=== PATIENT | male | born 1950 | race Caucasian/White ===

== ENCOUNTER 2017-04-11 08:58 | Inpatient (IN) | payer MEDICARE, OTHER ==
[~2017-04-11] VITALS: Ht 180.3 cm; Wt 74.4 kg
[2017-04-11] MEDS ORDERED: ASPI-496 PO (09:15)
[2017-04-11] MEDS ORDERED: MORPHINE SULFATE 4 MG/ML, 1ML ONE ×4 (09:25→12:11)
[2017-04-11] MEDS ORDERED: ONDANSETRON 2MG/ML, 2ML ONE ×3 (09:25→15:13)
[2017-04-11] MEDS ORDERED: ONDANSETRON 2MG/ML, 2ML IVPush ONE (09:30)
[2017-04-11] MEDS ORDERED: SODIUM CHLORIDE FLUSH 10ML SYR IVF ONE (09:30)
[2017-04-11 09:31] LABS: BASOPHILS # (AUTO) 0.05 x10^3/uL (0-0.1); BASOPHILS % (AUTO) 0 % (0-1); EOSINOPHILS # (AUTO) 0.66 x10^3/uL (0-0.4); EOSINOPHILS % (AUTO) 6 % (1-7); LYMPHOCYTES # (AUTO) 1.43 x10^3/uL (1-3.4); LYMPHOCYTES % (AUTO) 13 % (22-44); MD NO; MEAN CORPUSCULAR HEMOGLOBIN 30.5 pg (27.5-34.5); MEAN CORPUSCULAR HGB CONC 33.7 g/dL (33.2-36.2); MEAN CORPUSCULAR VOLUME 90.4 fL (81-97); MEAN PLATELET VOLUME 7.6 fL (7.4-10.4); MONOCYTES # (AUTO) 0.61 x10^3/uL (0.2-0.8); MONOCYTES % (AUTO) 5 % (2-9); NEUTROPHILS # (AUTO) 8.57 x10^3/uL (1.8-6.8); NEUTROPHILS % (AUTO) 76 % (42-75); PLATELET COUNT 310 x10^3/uL (130-400); RED BLOOD COUNT 4.83 x10^6/uL (4.38-5.82); RED CELL DISTRIBUTION WIDTH 13.5 % (9.4-14.8)
[2017-04-11] MEDS: MORPHINE SULFATE 4 MG/ML, 1ML IVPush PRN ×4 (09:33→23:02)
[2017-04-11 09:38] LABS: INTERNATIONAL NORMALIZED RATIO 0.98 (0.93-1.1); PROTHROMBIN TIME 10.1 Seconds (9.6-11.5)
[2017-04-11 09:41] LABS: ALANINE AMINOTRANSFERASE 69 U/L (12-78); ALBUMIN 3.4 g/dL (3.4-5.0); ANION GAP 5 mmol/L (5-15); CALCIUM 8.8 mg/dL (8.5-10.1); CHLORIDE 105 mmol/L (98-107); CREATININE 1.08 mg/dL (0.7-1.3)
[2017-04-11 09:43] LABS: ALKALINE PHOSPHATASE 175 U/L (45-117); BILIRUBIN,TOTAL 0.4 mg/dL (0.2-1.0); TOTAL PROTEIN 7.7 g/dL (6.4-8.2)
[2017-04-11] MEDS ORDERED: MORPHINE SULFATE 4 MG/ML, 1ML IVPush PRN ×2 (11:00→11:30)
[2017-04-11] MEDS ORDERED: SODIUM CHLORIDE 0.9% 1,000ML IVBOLUS ONE (11:00)
[2017-04-11] MEDS ORDERED: SODIUM CHLORIDE 0.9% 1,000 ML IV ONE ×2 (11:20→12:00)
[2017-04-11] MEDS ORDERED: ONDANSETRON 2MG/ML, 2ML IVPush PRN ×2 (11:30→12:00)
[2017-04-11] MEDS ORDERED: SODIUM CHLORIDE FLUSH 10ML SYR IVF PRN (11:30)
[2017-04-11] MEDS ORDERED: ONDANSETRON ODT 4 MG PO PRN (12:00)
[2017-04-11] MEDS ORDERED: DOCUSATE 100 MG CAPSULE PO PRN (12:00)
[2017-04-11] MEDS ORDERED: ENOXAPARIN 40 MG/0.4 ML SQ SCH (12:00)
[2017-04-11] MEDS ORDERED: LABETALOL 5MG/ML, 20ML IVPush PRN (12:00)
[2017-04-11] MEDS ORDERED: ENALAPRILAT 1.25 MG/ML, 2ML IVPush PRN (12:00)
[2017-04-11 14:00] VITALS: BP 140/72
[2017-04-11] MEDS ORDERED: FENTANYL PF 250 MCG/5ML ONE (14:30)
[2017-04-11] MEDS ORDERED: FENTANYL PF 100 MCG/2ML IV PRN (14:30)
[2017-04-11] MEDS ORDERED: MIDAZOLAM 1 MG/ML, 2ML ONE (14:30)
[2017-04-11] MEDS ORDERED: OXYcodone 5 MG/5 ML ORAL.SOL UDC PO PRN (14:30)
[2017-04-11] MEDS ORDERED: PROMETHAZINE 25 MG/ML, 1ML IV PRN (14:30)
[2017-04-11] MEDS ORDERED: HYDROmorphone 1 MG/ML, 1ML IV PRN ×2 (14:30→17:30)
[2017-04-11] MEDS ORDERED: SUCCINYLCHOLINE 20 MG/ML, 10ML ONE (14:31)
[2017-04-11] MEDS ORDERED: CEFAZOLIN 1,000 MG ONE ×2 (14:31)
[2017-04-11] MEDS ORDERED: PROPOFOL 10 MG/ML, 20ML ONE (14:31)
[2017-04-11] MEDS ORDERED: ROCURONIUM 10 MG/ML,10ML ONE (14:47)
[2017-04-11] MEDS ORDERED: KETOROLAC 30 MG/1 ML ONE (15:13)
[2017-04-11] MEDS ORDERED: DEXAMETHASONE 4 MG/ML, 1ML ONE ×2 (15:13)
[2017-04-11] MEDS ORDERED: GLYCOPYRROLATE 0.2MG/1ML, 5ML ONE (15:17)
[2017-04-11] MEDS ORDERED: NEOSTIGMINE 1 MG/ML, 10ML ONE (15:17)
[2017-04-11] MEDS ORDERED: FENTANYL PF 100 MCG/2ML ONE (15:57)
[2017-04-11] MEDS ORDERED: MEPERIDINE/PF 50 MG/ML ONE (15:57)
[2017-04-11] MEDS ORDERED: OXYcodone 5 MG/5 ML ORAL.SOL UDC ONE (16:26)
[2017-04-11] MEDS ORDERED: MEPERIDINE/PF 25MG/0.5ML IVPush PRN (17:00)
[2017-04-11] MEDS ORDERED: ONDANSETRON 2MG/ML, 2ML IV PRN (17:30)
[2017-04-11] MEDS ORDERED: DIPHENHYDRAMINE 25 MG CAPSULE PO PRN (17:30)
[2017-04-11] MEDS ORDERED: HYDROcodone/APAP 7.5-325MG/15ML UDC PO PRN (17:30)
[2017-04-11] MEDS ORDERED: CEFAZOLIN PMX 2GM/100ML 100 ML IVPB SCH (18:00)
[2017-04-11] MEDS: KETOROLAC 30 MG/1 ML IV SCH (19:02)
[2017-04-11 20:09] VITALS: BP 138/72
[2017-04-11] MEDS: SODIUM CHLORIDE FLUSH 10ML SYR IVF SCH (22:04)
[2017-04-11] MEDS: DOCUSATE 100 MG CAPSULE PO SCH (22:05)
[2017-04-11] MEDS: CEFAZOLIN PMX 2GM/50ML 50 ML IVPB SCH (22:05)
[2017-04-12] MEDS: KETOROLAC 30 MG/1 ML IV SCH ×2 (01:38→10:17)
[2017-04-12 02:00] VITALS: BP 128/70
[2017-04-12 05:38] LABS: BASOPHILS # (AUTO) 0.01 x10^3/uL (0-0.1); BASOPHILS % (AUTO) 0 % (0-1); EOSINOPHILS # (AUTO) 0.02 x10^3/uL (0-0.4); EOSINOPHILS % (AUTO) 0 % (1-7); LYMPHOCYTES # (AUTO) 0.83 x10^3/uL (1-3.4); LYMPHOCYTES % (AUTO) 7 % (22-44); MD NO; MEAN CORPUSCULAR HEMOGLOBIN 30.7 pg (27.5-34.5); MEAN CORPUSCULAR HGB CONC 33.7 g/dL (33.2-36.2); MEAN CORPUSCULAR VOLUME 91.1 fL (81-97); MEAN PLATELET VOLUME 7.8 fL (7.4-10.4); MONOCYTES % (AUTO) 5 % (2-9); NEUTROPHILS # (AUTO) 10.99 x10^3/uL (1.8-6.8); NEUTROPHILS % (AUTO) 88 % (42-75); PLATELET COUNT 251 x10^3/uL (130-400); RED BLOOD COUNT 4.23 x10^6/uL (4.38-5.82); RED CELL DISTRIBUTION WIDTH 13.3 % (9.4-14.8)
[2017-04-12 05:51] LABS: ANION GAP 6 mmol/L (5-15); CALCIUM 8.4 mg/dL (8.5-10.1); CHLORIDE 106 mmol/L (98-107)
[2017-04-12] MEDS: ENOXAPARIN 40 MG/0.4 ML SQ SCH (05:52)
[2017-04-12] MEDS: CEFAZOLIN PMX 2GM/50ML 50 ML IVPB SCH (05:53)
[2017-04-12 05:56] LABS: CHOL/HDL RATIO 4.9; CHOLESTEROL, TOTAL 210 mg/dL (140-239); CREATININE 0.98 mg/dL (0.7-1.3); HDL CHOL % 20 % (26-37); HDL CHOLESTEROL (DIRECT) 43 mg/dL (40-60); LDL CHOLESTEROL,CALCULATED 146 mg/dL (54-169); TRIGLYCERIDES 103 mg/dL (50-200); VLDL CHOLESTEROL 21 mg/dL (0-25)
[2017-04-12 05:57] LABS: LDL/HDL RATIO 3.4 (0.5-3.0)
[2017-04-12 06:39] VITALS: BP 130/68
[2017-04-12] MEDS: SODIUM CHLORIDE FLUSH 10ML SYR IVF SCH ×2 (10:18→20:24)
[2017-04-12] MEDS: SENNA/DOCUSATE TABLET PO SCH (10:18)
[2017-04-12] MEDS: DOCUSATE 100 MG CAPSULE PO SCH ×2 (10:18→20:24)
[2017-04-12 17:40] VITALS: BP 147/70
[2017-04-12 19:08] VITALS: BP 120/63
[2017-04-13 02:31] VITALS: BP 113/67
[2017-04-13] MEDS: ENOXAPARIN 40 MG/0.4 ML SQ SCH (06:02)
[2017-04-13 06:45] VITALS: BP 119/73
[2017-04-13] MEDS ORDERED: DOCU-131 PO (07:43)
[2017-04-13] MEDS ORDERED: CELE200C PO (07:43)
[2017-04-13] MEDS ORDERED: ASPI-621 PO (07:43)
[2017-04-13] MEDS: SENNA/DOCUSATE TABLET PO SCH (10:16)
[2017-04-13] MEDS: DOCUSATE 100 MG CAPSULE PO SCH (10:16)
[2017-04-13] MEDS: SODIUM CHLORIDE FLUSH 10ML SYR IVF SCH (10:18)
== END 2017-04-13 13:16 | disposition home or self-care (01) | DRG 470 ==
LOC: ED 09:51 → EDIP 11:20 → 4WST 12:33
PROVIDERS: ADMIT Internal Medicine; ATTEND Internal Medicine
PROC: 0SRS0J9 Replacement of Left Hip Joint, Femoral Surface with Synthetic Substitute, Cemented, Open Approach (ICD-10-PCS; principal; 2017-04-11 15:30)
DX: S72.092A Other fracture of head and neck of left femur, initial encounter for closed fracture (principal); D64.9 Anemia, unspecified; W00.0XXA Fall on same level due to ice and snow, initial encounter; D72.829 Elevated white blood cell count, unspecified; I25.10 Atherosclerotic heart disease of native coronary artery without angina pectoris; R73.9 Hyperglycemia, unspecified; Z79.82 Long term (current) use of aspirin; Z95.5 Presence of coronary angioplasty implant and graft; Y93.89 Activity, other specified; Y92.098 Other place in other non-institutional residence as the place of occurrence of the external cause; Y99.8 Other external cause status
CPT/HCPCS: 36415; 71045; 80048; 80053; 80061; 85025; 85610; 85730; 93005; 96374; 96375; 96376; C1713; J0690; J1100; J1650; J1885; J2175; J2250; J2405; J2704; J2710; J3010; J3490; C1762; C1776; J0330; J7030

== ENCOUNTER 2018-08-17 10:43 | Inpatient (IN) | payer MEDICARE, OTHER ==
[~2018-08-17] VITALS: Ht 180.3 cm; Wt 84.4 kg
[~2018-08-17 10:43] MED LIST: ASPI-496 PO; ASPI81TA45 PO; CELE200C PO; DOCU-131 PO
[2018-08-17] MEDS ORDERED: ASPIRIN 81 MG TABLET CHEW PO ONE (11:00)
[2018-08-17] MEDS ORDERED: SODIUM CHLORIDE FLUSH 10ML SYR IVF ONE (11:00)
[2018-08-17] MEDS ORDERED: NITROGLYCERIN OINT 2%, 1GM TP ONE ×2 (11:00→11:29)
[2018-08-17] MEDS ORDERED: ACETAMINOPHEN 500 MG TABLET PO ONE (11:00)
[2018-08-17] MEDS ORDERED: ACETAMINOPHEN 500 MG TABLET ONE (11:29)
[2018-08-17] MEDS ORDERED: ASPIRIN 81 MG TABLET CHEW ONE (11:29)
--- NOTE | 2018-08-17 11:44 | NUR ---
PT PRESENTS WITH C/O CP THAT STATED YESTERDAY, STERNAL IN LOCATION RADIATING TO BOTH SIDES OF THE NECK, ASSOSCIATED SYMPTOMS INCLUDING SOB AND NAUSEA, SWEATING. PAIN CURRENTLY 3/10 STERNAL. WILL MEDICATE PER EMAR. ALL MONITORS APPLIED
[2018-08-17 11:48] LABS: BASOPHILS # (AUTO) 0.05 x10^3/uL (0-0.1); BASOPHILS % (AUTO) 1 % (0-1); EOSINOPHILS # (AUTO) 0.08 x10^3/uL (0-0.4); EOSINOPHILS % (AUTO) 1 % (1-7); LYMPHOCYTES # (AUTO) 0.96 x10^3/uL (1-3.4); LYMPHOCYTES % (AUTO) 13 % (22-44); MD NO; MEAN CORPUSCULAR HEMOGLOBIN 30.1 pg (27.5-34.5); MEAN CORPUSCULAR HGB CONC 32.7 g/dL (33.2-36.2); MEAN CORPUSCULAR VOLUME 92.2 fL (81-97); MEAN PLATELET VOLUME 7.4 fL (7.4-10.4); MONOCYTES # (AUTO) 0.36 x10^3/uL (0.2-0.8); MONOCYTES % (AUTO) 5 % (2-9); NEUTROPHILS % (AUTO) 81 % (42-75); PLATELET COUNT 256 x10^3/uL (130-400); RED BLOOD COUNT 4.81 x10^6/uL (4.38-5.82); RED CELL DISTRIBUTION WIDTH 13.6 % (9.4-14.8)
[2018-08-17 11:59] LABS: ALBUMIN 3.6 g/dL (3.4-5.0); ANION GAP 5 mmol/L (5-15); CALCIUM 8.9 mg/dL (8.5-10.1); CHLORIDE 107 mmol/L (98-107); CREATININE 1.01 mg/dL (0.7-1.3)
--- NOTE | 2018-08-17 12:56 | NUR ---
report given to gloria neri 521
[2018-08-17] MEDS ORDERED: ONDANSETRON ODT 4 MG PO PRN (13:00)
[2018-08-17] MEDS ORDERED: ONDANSETRON 2MG/ML, 2ML IVPush PRN (13:00)
[2018-08-17] MEDS ORDERED: POLYETHYLENE GLYCOL 17 GM PACKET PO PRN (13:00)
[2018-08-17] MEDS ORDERED: HEPARIN 25,000 UNITS/500ML PMX 500 ML IV PRN (13:00)
[2018-08-17] MEDS ORDERED: HEPARIN 5,000 UNITS/ML, 1ML IV PRN (13:00)
[2018-08-17] MEDS ORDERED: LABETALOL 5MG/ML, 20ML IVPush PRN (13:00)
[2018-08-17] MEDS ORDERED: HEPARIN 5,000 UNITS/ML, 1ML IV ONE (13:00)
[2018-08-17 13:18] LABS: FREE T4 (FREE THYROXINE) 1.02 ng/dL (0.76-1.46)
[2018-08-17] MEDS: SODIUM CHLORIDE 0.9% 1,000 ML IV SCH ×3 (13:47→22:47)
[2018-08-17 14:18] VITALS: BP 136/75
[2018-08-17] MEDS ORDERED: FENTANYL PF 100 MCG/2ML ONE (15:22)
[2018-08-17] MEDS ORDERED: TICAGRELOR 90 MG TABLET ONE (15:22)
[2018-08-17] MEDS ORDERED: NITROGLYCERIN 5 MG/ML, 10ML ONE (15:22)
[2018-08-17] MEDS ORDERED: HEPARIN 1,000 UNITS/ML, 10ML ONE (15:22)
[2018-08-17] MEDS ORDERED: VERAPAMIL 2.5 MG/ML, 2ML ONE (15:22)
[2018-08-17] MEDS ORDERED: LIDOCAINE 2%, 20ML ONE (15:22)
[2018-08-17] MEDS ORDERED: MIDAZOLAM 1 MG/ML, 5ML ONE (15:22)
[2018-08-17] MEDS ORDERED: ACETAMINOPHEN 325 MG TABLET PO PRN (18:00)
[2018-08-17] MEDS ORDERED: METOPROLOL TARTRATE 25 MG TABLET PO ONE (18:00)
[2018-08-17] MEDS ORDERED: INSULIN LISPRO 100 UNITS/ML, PEN SQ-INSULIN SCH (18:00)
[2018-08-17] MEDS ORDERED: CHLORHEXIDINE 15 ML UDC MM PRN (18:00)
[2018-08-17 18:17] LABS: BASOPHILS # (AUTO) 0.04 x10^3/uL (0-0.1); BASOPHILS % (AUTO) 0 % (0-1); EOSINOPHILS # (AUTO) 0.35 x10^3/uL (0-0.4); EOSINOPHILS % (AUTO) 4 % (1-7); LYMPHOCYTES # (AUTO) 2.34 x10^3/uL (1-3.4); LYMPHOCYTES % (AUTO) 28 % (22-44); MD NO; MEAN CORPUSCULAR HEMOGLOBIN 31.5 pg (27.5-34.5); MEAN CORPUSCULAR HGB CONC 33.3 g/dL (33.2-36.2); MEAN CORPUSCULAR VOLUME 94.7 fL (81-97); MEAN PLATELET VOLUME 7.5 fL (7.4-10.4); MONOCYTES # (AUTO) 0.45 x10^3/uL (0.2-0.8); MONOCYTES % (AUTO) 5 % (2-9); NEUTROPHILS # (AUTO) 5.14 x10^3/uL (1.8-6.8); NEUTROPHILS % (AUTO) 62 % (42-75); PLATELET COUNT 241 x10^3/uL (130-400); RED BLOOD COUNT 4.59 x10^6/uL (4.38-5.82); RED CELL DISTRIBUTION WIDTH 13.4 % (9.4-14.8)
[2018-08-17 18:28] LABS: INTERNATIONAL NORMALIZED RATIO 1.02 (0.93-1.1); PROTHROMBIN TIME 10.7 Seconds (9.6-11.5)
[2018-08-17 18:29] LABS: ALANINE AMINOTRANSFERASE 37 U/L (12-78); ALBUMIN 3.4 g/dL (3.4-5.0); ANION GAP 5 mmol/L (5-15); CHLORIDE 107 mmol/L (98-107); CREATININE 0.97 mg/dL (0.7-1.3)
[2018-08-17 18:31] LABS: ALKALINE PHOSPHATASE 138 U/L (45-117); BILIRUBIN,TOTAL 0.8 mg/dL (0.2-1.0); TOTAL PROTEIN 7.2 g/dL (6.4-8.2)
[2018-08-17 18:35] VITALS: BP 130/71
[2018-08-17 19:05] LABS: MICROSCOPIC NOT IND
[2018-08-17 19:10] LABS: HEMOGLOBIN A1C 5.8 % (4.2-6.3)
[2018-08-17] MEDS: SODIUM CHLORIDE FLUSH 10ML SYR IVF SCH (20:40)
[2018-08-17] MEDS: MUPIROCIN OINT 2%, 22GM TP SCH (20:54)
[2018-08-18] MEDS: SODIUM CHLORIDE 0.9% 1,000 ML IV SCH ×4 (00:02→16:02)
[2018-08-18 00:34] VITALS: BP 128/74
[2018-08-18 02:27] LABS: ANION GAP 6 mmol/L (5-15); CALCIUM 8.3 mg/dL (8.5-10.1); CHLORIDE 110 mmol/L (98-107)
[2018-08-18 02:39] LABS: CHOL/HDL RATIO 5.3; CHOLESTEROL, TOTAL 207 mg/dL (140-239); CREATININE 0.94 mg/dL (0.7-1.3); HDL CHOL % 19 % (26-37); HDL CHOLESTEROL (DIRECT) 39 mg/dL (40-60); LDL CHOLESTEROL,CALCULATED 138 mg/dL (54-169); LDL/HDL RATIO 3.5 (0.5-3.0); TRIGLYCERIDES 150 mg/dL (50-200); VLDL CHOLESTEROL 30 mg/dL (0-25)
[2018-08-18] MEDS ORDERED: PANTOPRAZOLE 40 MG IV IVPush SCH (07:30)
[2018-08-18 07:32] VITALS: BP 126/69
[2018-08-18] MEDS ORDERED: ASPIRIN 81 MG TABLET EC PO SCH (08:00)
[2018-08-18 10:15] VITALS: BP_SYST 137; BP_SYST 138; BP_DIAS 77; BP_DIAS 82
[2018-08-18] MEDS: SENNA/DOCUSATE TABLET PO SCH (10:15)
[2018-08-18] MEDS: MUPIROCIN OINT 2%, 22GM TP SCH (10:15)
[2018-08-18] MEDS: SODIUM CHLORIDE FLUSH 10ML SYR IVF SCH ×3 (10:20→19:57)
[2018-08-18] MEDS ORDERED: PAPAVERINE 30 MG/ML, 2ML ONE (11:30)
[2018-08-18] MEDS ORDERED: HEPARIN 1,000 UNITS/ML, 10ML ONE (11:31)
[2018-08-18] MEDS ORDERED: FENTANYL PF 250 MCG/5ML ONE ×4 (11:56→11:57)
[2018-08-18] MEDS ORDERED: MIDAZOLAM 10MG/2 ML ONE (11:56)
[2018-08-18] MEDS ORDERED: ALBUMIN HUMAN 5% 500 ML IV PRN (12:30)
[2018-08-18] MEDS ORDERED: EPINEPHRINE 2 MG in SODIUM CHLORIDE 0.9% 248 ML IV SCH (12:30)
[2018-08-18] MEDS ORDERED: MANNITOL PMX 20% 500 ML IVPB PRN (12:30)
[2018-08-18] MEDS ORDERED: POTASSIUM CHLORIDE 80 MEQ, SODIUM BICARBONATE 8.4% 10 MEQ, MAGNESIUM SULFATE 0.5 GM, LI... IV PRN (12:30)
[2018-08-18] MEDS ORDERED: DEXMEDETOMIDINE 200 MCG in SODIUM CHLORIDE 0.9% 48 ML IV SCH (12:30)
[2018-08-18] MEDS ORDERED: CEFUROXIME 1.5 GM in SODIUM CHLORIDE 0.9% 50 ML IVPB PRN (12:30)
[2018-08-18] MEDS ORDERED: VANCOMYCIN 1,100 MG in SODIUM CHLORIDE 0.9% 250 ML IVPB PRN (12:30)
[2018-08-18] MEDS ORDERED: PHENYLEPHRINE 10 MG in SODIUM CHLORIDE 0.9% 249 ML IV PRN ×2 (12:30→17:14)
[2018-08-18] MEDS ORDERED: REGULAR INSULIN 62.5 UNITS in SODIUM CHLORIDE 0.9% 249.375 ML IV PRN ×2 (12:30→17:14)
[2018-08-18] MEDS ORDERED: PROPOFOL 10 MG/ML, 20ML ONE (15:18)
[2018-08-18] MEDS ORDERED: PROTAMINE SULFATE 10 MG/ML, 25ML ONE ×2 (15:18)
[2018-08-18] MEDS ORDERED: ROCURONIUM 10MG/ML,5ML ONE ×2 (15:18)
[2018-08-18] MEDS ORDERED: AMINOCAPROIC ACID 250 MG/ML, 20ML ONE (15:18)
[2018-08-18] MEDS ORDERED: AMIODARONE 50 MG/ML, 3ML ONE (15:40)
[2018-08-18] MEDS ORDERED: CALCIUM CHLORIDE 10%, 10ML SYR ONE (16:20)
[2018-08-18] MEDS ORDERED: AMIODARONE 900 MG in DEXTROSE 5% 482 ML IV PRN (16:30)
[2018-08-18] MEDS ORDERED: FILTER 0.22 MICRON IV PRN (16:30)
[2018-08-18] MEDS ORDERED: VASOPRESSIN 20 UNIT/ML, 1ML ONE (16:35)
[2018-08-18] MEDS ORDERED: NITROGLYCERIN/D5W PMX 250 ML IV PRN (17:14)
[2018-08-18] MEDS ORDERED: DEXMEDETOMIDINE 200 MCG in SODIUM CHLORIDE 0.9% 48 ML IV PRN (17:14)
[2018-08-18] MEDS ORDERED: DOBUTAMINE 250 MG in SODIUM CHLORIDE 0.9% 230 ML IV PRN (17:14)
[2018-08-18] MEDS ORDERED: SODIUM CHLORIDE 0.9% 1,000 ML IV PRN (17:14)
[2018-08-18] MEDS ORDERED: VASOPRESSIN 50 UNIT in SODIUM CHLORIDE 0.9% 247.5 ML IV PRN (17:14)
[2018-08-18] MEDS ORDERED: ACETAMINOPHEN 325 MG TABLET PO PRN (17:30)
[2018-08-18] MEDS ORDERED: DEXTROSE 4 GM TAB.CHEW PO PRN (17:30)
[2018-08-18] MEDS ORDERED: EPINEPHRINE 2 MG in SODIUM CHLORIDE 0.9% 248 ML IV PRN (17:30)
[2018-08-18] MEDS ORDERED: BISACODYL 10 MG SUPP PR PRN (17:30)
[2018-08-18] MEDS ORDERED: ONDANSETRON 2MG/ML, 2ML IVPush PRN (17:30)
[2018-08-18] MEDS ORDERED: ACETAMINOPHEN 650 MG SUPP PR PRN (17:30)
[2018-08-18] MEDS ORDERED: morphine SULFATE 10 MG/ML, 1ML IVPush PRN (17:30)
[2018-08-18] MEDS ORDERED: DEXTROSE 50%, 50ML SYRINGE IVPush PRN (17:30)
[2018-08-18] MEDS ORDERED: PROCHLORPERAZINE 5 MG/ML, 2ML IVPush PRN (17:30)
[2018-08-18] MEDS ORDERED: GLUCAGON 1 MG IM PRN (17:30)
[2018-08-18] MEDS ORDERED: INSULIN REGULAR 100 UNITS/ML, 3ML VIAL IVPush PRN (17:30)
[2018-08-18] MEDS ORDERED: MIDAZOLAM 1 MG/ML, 5ML IVPush PRN (17:30)
[2018-08-18] MEDS ORDERED: LACTATED RINGERS 1,000 ML IV PRN (17:30)
[2018-08-18] MEDS ORDERED: BISACODYL 5 MG EC TABLET PO PRN (17:30)
[2018-08-18] MEDS ORDERED: ALBUMIN HUMAN 25% 50 ML ONE (17:41)
[2018-08-18] MEDS ORDERED: HEPARIN 1,000 UNITS/ML, 30ML ONE (17:41)
[2018-08-18] MEDS ORDERED: LIDOCAINE 2% 100MG/5ML SYRINGE ONE (17:41)
[2018-08-18] MEDS ORDERED: SODIUM BICARBONATE 1 MEQ/ML, 50ML VIAL ONE (17:41)
[2018-08-18] MEDS ORDERED: methylPREDNISolone SOD SUCC 125 MG/2 ML ONE (17:42)
[2018-08-18 17:55] LABS: GLUCOSE BY BLOOD GAS ANALYZER 127 mg/dL (70-110); HEMOGLOBIN BY BLOOD GAS ANALYZ 11.7 g/dL (14.0-18.0); POTASSIUM BY BLOOD GAS ANALYZR 3.4 mmol/L (3.6-5.5)
[2018-08-18] MEDS: MAGNESIUM SULFATE 1 GM in SODIUM CHLORIDE 0.9% 50 ML IVPB SCH (17:58)
[2018-08-18] MEDS: KSCALE TO 4.5 IV SCH (18:00)
[2018-08-18] MEDS ORDERED: HYDROcodone/APAP 5/325 TABLET PO PRN (18:00)
[2018-08-18] MEDS: SODIUM BICARB 8.4%, 50ML SYRINGE IV PRN ×3 (18:03→20:48)
[2018-08-18] MEDS ORDERED: POTASSIUM CHLORIDE 30 MEQ in SODIUM CHLORIDE 0.9% 100 ML IV ONE (18:30)
[2018-08-18] MEDS ORDERED: MORPHINE SULFATE 4 MG/ML, 1ML ONE (19:45)
[2018-08-18] MEDS: MORPHINE SULFATE 4 MG/ML, 1ML IVPush PRN ×2 (19:54→22:56)
[2018-08-18] MEDS: INSULIN LISPRO 100 UNITS/ML, PEN SQ-INSULIN SCH (19:57)
[2018-08-18] MEDS: DOCUSATE 100 MG CAPSULE PO SCH (19:57)
[2018-08-18] MEDS: MUPIROCIN OINT 2%, 22GM NAS SCH (19:57)
[2018-08-18] MEDS ORDERED: POTASSIUM CHLORIDE PMX 100 ML IV ONE (23:45)
[2018-08-19] MEDS: OXYcodone IR 5MG TABLET PO PRN ×5 (00:11→20:54)
[2018-08-19] MEDS: CEFUROXIME 1.5 GM in SODIUM CHLORIDE 0.9% 50 ML IVPB SCH ×2 (00:58→12:05)
[2018-08-19] MEDS: VANCOMYCIN 1,100 MG in SODIUM CHLORIDE 0.9% 250 ML IVPB SCH ×2 (01:03→12:06)
[2018-08-19 04:00] VITALS: BP 100/50
[2018-08-19 04:54] LABS: BASOPHILS % (AUTO) 0 % (0-1); EOSINOPHILS % (AUTO) 0 % (1-7); LYMPHOCYTES # (AUTO) 0.38 x10^3/uL (1-3.4); LYMPHOCYTES % (AUTO) 3 % (22-44); MD NO; MEAN CORPUSCULAR HEMOGLOBIN 31.8 pg (27.5-34.5); MEAN CORPUSCULAR HGB CONC 34.1 g/dL (33.2-36.2); MEAN CORPUSCULAR VOLUME 93.2 fL (81-97); MONOCYTES # (AUTO) 0.72 x10^3/uL (0.2-0.8); MONOCYTES % (AUTO) 6 % (2-9); NEUTROPHILS # (AUTO) 10.25 x10^3/uL (1.8-6.8); NEUTROPHILS % (AUTO) 90 % (42-75); PLATELET COUNT 177 x10^3/uL (130-400); RED BLOOD COUNT 3.48 x10^6/uL (4.38-5.82); RED CELL DISTRIBUTION WIDTH 13.8 % (9.4-14.8)
[2018-08-19 04:58] LABS: ANION GAP 6 mmol/L (5-15); CALCIUM 7.6 mg/dL (8.5-10.1); CHLORIDE 114 mmol/L (98-107)
[2018-08-19 05:03] LABS: ALANINE AMINOTRANSFERASE 28 U/L (12-78); ALKALINE PHOSPHATASE 76 U/L (45-117); BILIRUBIN,TOTAL 0.6 mg/dL (0.2-1.0); CREATININE 0.95 mg/dL (0.7-1.3); TOTAL PROTEIN 5.5 g/dL (6.4-8.2)
[2018-08-19] MEDS: KSCALE TO 4.5 IV SCH ×3 (05:41→12:00)
[2018-08-19] MEDS: INSULIN LISPRO 100 UNITS/ML, PEN SQ-INSULIN SCH ×4 (07:00→21:00)
[2018-08-19] MEDS: SODIUM CHLORIDE FLUSH 10ML SYR IVF SCH ×3 (07:30→20:56)
[2018-08-19 07:43] LABS: INTERNATIONAL NORMALIZED RATIO 1.04 (0.93-1.1); PROTHROMBIN TIME 10.9 Seconds (9.6-11.5)
[2018-08-19] MEDS ORDERED: CALCIUM CHLORIDE 13.6 MEQ in SODIUM CHLORIDE 0.9% 100 ML IV ONE (08:30)
[2018-08-19] MEDS: METOPROLOL TARTRATE 25 MG TABLET PO/NG SCH ×2 (09:00→20:55)
[2018-08-19] MEDS: SENNA/DOCUSATE TABLET PO SCH (09:00)
[2018-08-19] MEDS ORDERED: MAGNESIUM HYDROXIDE 8%, 30ML UDC PO PRN (09:00)
[2018-08-19] MEDS: AMIODARONE 200 MG TABLET PO SCH ×2 (09:58→21:00)
[2018-08-19] MEDS: FUROSEMIDE 20 MG/2 ML IV SCH ×2 (09:58→16:57)
[2018-08-19] MEDS: MUPIROCIN OINT 2%, 22GM NAS SCH ×2 (09:59→20:56)
[2018-08-19] MEDS: DOCUSATE 100 MG CAPSULE PO SCH ×2 (09:59→21:00)
[2018-08-19] MEDS: ASPIRIN 81 MG TABLET EC PO SCH (09:59)
[2018-08-19] MEDS ORDERED: CALCIUM GLUCONATE 13.8 MEQ in SODIUM CHLORIDE 0.9% 100 ML IV ONE (10:00)
[2018-08-19] MEDS ORDERED: MORPHINE SULFATE 4 MG/ML, 1ML IVPush PRN (14:30)
[2018-08-19] MEDS: POTASSIUM CHLORIDE 10 MEQ TABLET.ER PO SCH (16:58)
[2018-08-19] MEDS: MAGNESIUM SULFATE 1 GM in SODIUM CHLORIDE 0.9% 50 ML IVPB SCH (17:29)
[2018-08-19] MEDS ORDERED: SODIUM CHLORIDE FLUSH 10ML SYR IVF SCH (21:00)
[2018-08-19] MEDS: CHLORHEXIDINE 15 ML UDC MM SCH (21:00)
[2018-08-20] MEDS: OXYcodone IR 5MG TABLET PO PRN ×6 (00:15→23:27)
[2018-08-20 04:33] LABS: BASOPHILS % (AUTO) 0 % (0-1); EOSINOPHILS # (AUTO) 0.01 x10^3/uL (0-0.4); EOSINOPHILS % (AUTO) 0 % (1-7); LYMPHOCYTES % (AUTO) 8 % (22-44); MD NO; MEAN CORPUSCULAR HEMOGLOBIN 31.7 pg (27.5-34.5); MEAN CORPUSCULAR HGB CONC 33.6 g/dL (33.2-36.2); MEAN CORPUSCULAR VOLUME 94.4 fL (81-97); MEAN PLATELET VOLUME 8.4 fL (7.4-10.4); MONOCYTES % (AUTO) 9 % (2-9); NEUTROPHILS # (AUTO) 12.74 x10^3/uL (1.8-6.8); NEUTROPHILS % (AUTO) 84 % (42-75); PLATELET COUNT 174 x10^3/uL (130-400); RED BLOOD COUNT 3.61 x10^6/uL (4.38-5.82); RED CELL DISTRIBUTION WIDTH 13.9 % (9.4-14.8)
[2018-08-20 04:44] LABS: INTERNATIONAL NORMALIZED RATIO 1.05 (0.93-1.1)
[2018-08-20 04:46] LABS: ALBUMIN 2.8 g/dL (3.4-5.0); ANION GAP 4 mmol/L (5-15); CALCIUM 8.6 mg/dL (8.5-10.1); CHLORIDE 101 mmol/L (98-107)
[2018-08-20 04:49] LABS: ALANINE AMINOTRANSFERASE 30 U/L (12-78); ALKALINE PHOSPHATASE 85 U/L (45-117); BILIRUBIN,TOTAL 0.9 mg/dL (0.2-1.0); CREATININE 1.02 mg/dL (0.7-1.3); TOTAL PROTEIN 5.9 g/dL (6.4-8.2)
[2018-08-20] MEDS: INSULIN LISPRO 100 UNITS/ML, PEN SQ-INSULIN SCH ×2 (06:13→11:00)
[2018-08-20] MEDS: AMIODARONE 200 MG TABLET PO SCH ×2 (08:58→20:50)
[2018-08-20] MEDS: DOCUSATE 100 MG CAPSULE PO SCH ×2 (08:58→20:49)
[2018-08-20] MEDS: POTASSIUM CHLORIDE 10 MEQ TABLET.ER PO SCH ×2 (08:58→16:42)
[2018-08-20] MEDS: CHLORHEXIDINE 15 ML UDC MM SCH ×2 (08:59→20:53)
[2018-08-20] MEDS: MUPIROCIN OINT 2%, 22GM NAS SCH ×2 (08:59→20:54)
[2018-08-20] MEDS: SODIUM CHLORIDE FLUSH 10ML SYR IVF SCH ×2 (08:59→20:56)
[2018-08-20] MEDS: ASPIRIN 81 MG TABLET EC PO SCH (08:59)
[2018-08-20] MEDS: FUROSEMIDE 20 MG/2 ML IV SCH ×2 (08:59→16:42)
[2018-08-20] MEDS: SENNA/DOCUSATE TABLET PO SCH (08:59)
[2018-08-20] MEDS: METOPROLOL TARTRATE 25 MG TABLET PO/NG SCH ×2 (09:00→20:49)
[2018-08-20 12:47] VITALS: BP 115/73
[2018-08-20] MEDS: MAGNESIUM SULFATE 1 GM in SODIUM CHLORIDE 0.9% 50 ML IVPB SCH (17:10)
[2018-08-20 18:53] VITALS: BP 112/73
[2018-08-20] MEDS: ENOXAPARIN 40 MG/0.4 ML SQ SCH (20:54)
[2018-08-21 02:47] VITALS: BP 121/76
[2018-08-21] MEDS: OXYcodone IR 5MG TABLET PO PRN ×5 (02:55→21:37)
[2018-08-21 03:35] LABS: ANION GAP 6 mmol/L (5-15); CALCIUM 8.8 mg/dL (8.5-10.1); CHLORIDE 96 mmol/L (98-107); CREATININE 1.03 mg/dL (0.7-1.3)
[2018-08-21 07:35] VITALS: BP 113/77
[2018-08-21 08:00] VITALS: BP 106/70
[2018-08-21] MEDS: POTASSIUM CHLORIDE 10 MEQ TABLET.ER PO SCH ×2 (09:07→17:50)
[2018-08-21] MEDS: CHLORHEXIDINE 15 ML UDC MM SCH (09:07)
[2018-08-21] MEDS: FUROSEMIDE 20 MG/2 ML IV SCH ×2 (09:07→17:50)
[2018-08-21] MEDS: DOCUSATE 100 MG CAPSULE PO SCH ×2 (09:08→21:37)
[2018-08-21] MEDS: MUPIROCIN OINT 2%, 22GM NAS SCH ×2 (09:08→21:00)
[2018-08-21] MEDS: CLOPIDOGREL 75 MG TABLET PO SCH (09:09)
[2018-08-21] MEDS: ASPIRIN 81 MG TABLET EC PO SCH (09:09)
[2018-08-21] MEDS: AMIODARONE 200 MG TABLET PO SCH ×2 (09:09→21:37)
[2018-08-21] MEDS: SENNA/DOCUSATE TABLET PO SCH (09:10)
[2018-08-21] MEDS: METOPROLOL TARTRATE 25 MG TABLET PO/NG SCH ×2 (09:10→21:37)
[2018-08-21] MEDS: SODIUM CHLORIDE FLUSH 10ML SYR IVF SCH ×2 (09:15→21:38)
[2018-08-21 15:10] VITALS: BP 103/68
[2018-08-21 19:25] VITALS: BP 103/64
[2018-08-21] MEDS: ENOXAPARIN 40 MG/0.4 ML SQ SCH (21:38)
[2018-08-22 01:00] VITALS: BP 107/71
[2018-08-22] MEDS: OXYcodone IR 5MG TABLET PO PRN ×3 (02:27→17:58)
[2018-08-22 05:55] LABS: BASOPHILS # (AUTO) 0.03 x10^3/uL (0-0.1); BASOPHILS % (AUTO) 0 % (0-1); EOSINOPHILS # (AUTO) 0.18 x10^3/uL (0-0.4); EOSINOPHILS % (AUTO) 2 % (1-7); LYMPHOCYTES # (AUTO) 1.12 x10^3/uL (1-3.4); LYMPHOCYTES % (AUTO) 11 % (22-44); MD NO; MEAN CORPUSCULAR HEMOGLOBIN 30.5 pg (27.5-34.5); MEAN CORPUSCULAR HGB CONC 32.6 g/dL (33.2-36.2); MEAN CORPUSCULAR VOLUME 93.6 fL (81-97); MEAN PLATELET VOLUME 8.3 fL (7.4-10.4); MONOCYTES # (AUTO) 0.96 x10^3/uL (0.2-0.8); MONOCYTES % (AUTO) 10 % (2-9); NEUTROPHILS # (AUTO) 7.78 x10^3/uL (1.8-6.8); NEUTROPHILS % (AUTO) 77 % (42-75); PLATELET COUNT 221 x10^3/uL (130-400); RED BLOOD COUNT 3.43 x10^6/uL (4.38-5.82); RED CELL DISTRIBUTION WIDTH 13.3 % (9.4-14.8)
[2018-08-22 06:07] LABS: ALBUMIN 2.5 g/dL (3.4-5.0); ANION GAP 5 mmol/L (5-15); CALCIUM 8.6 mg/dL (8.5-10.1); CHLORIDE 96 mmol/L (98-107)
[2018-08-22 06:11] LABS: ALANINE AMINOTRANSFERASE 21 U/L (12-78); ALKALINE PHOSPHATASE 115 U/L (45-117); BILIRUBIN,TOTAL 0.7 mg/dL (0.2-1.0); CREATININE 0.91 mg/dL (0.7-1.3); TOTAL PROTEIN 6.8 g/dL (6.4-8.2)
[2018-08-22 07:04] VITALS: BP 111/70
[2018-08-22] MEDS: SENNA/DOCUSATE TABLET PO SCH (08:52)
[2018-08-22] MEDS: AMIODARONE 200 MG TABLET PO SCH ×2 (08:52→20:02)
[2018-08-22] MEDS: CLOPIDOGREL 75 MG TABLET PO SCH (08:52)
[2018-08-22] MEDS: ASPIRIN 81 MG TABLET EC PO SCH (08:52)
[2018-08-22] MEDS: FUROSEMIDE 20 MG/2 ML IV SCH ×2 (08:52→17:18)
[2018-08-22] MEDS: METOPROLOL TARTRATE 25 MG TABLET PO/NG SCH ×2 (08:53→20:03)
[2018-08-22] MEDS: POTASSIUM CHLORIDE 10 MEQ TABLET.ER PO SCH ×2 (08:53→17:18)
[2018-08-22] MEDS: DOCUSATE 100 MG CAPSULE PO SCH ×2 (08:53→20:03)
[2018-08-22] MEDS ORDERED: POLYETHYLENE GLYCOL 17 GM PACKET PO SCH (09:00)
[2018-08-22] MEDS: SODIUM CHLORIDE FLUSH 10ML SYR IVF SCH ×2 (09:01→20:09)
[2018-08-22] MEDS: MUPIROCIN OINT 2%, 22GM NAS SCH ×2 (09:01→20:04)
[2018-08-22 09:31] LABS: MICROSCOPIC AUTO
[2018-08-22 09:32] LABS: CULTURE INDICATED? NO
[2018-08-22 15:03] VITALS: BP 99/62
[2018-08-22] MEDS ORDERED: POTASSIUM PHOSPHATE 22 MEQ in SODIUM CHLORIDE 0.9% 500 ML IV ONE (17:00)
[2018-08-22 19:48] VITALS: BP 113/70
[2018-08-22] MEDS: ENOXAPARIN 40 MG/0.4 ML SQ SCH (20:04)
[2018-08-23] MEDS: OXYcodone IR 5MG TABLET PO PRN ×3 (00:49→20:48)
[2018-08-23 01:45] VITALS: BP 132/78
[2018-08-23 06:17] LABS: ANION GAP 6 mmol/L (5-15); CALCIUM 8.7 mg/dL (8.5-10.1); CHLORIDE 98 mmol/L (98-107)
[2018-08-23 06:30] LABS: BASOPHILS # (AUTO) 0.04 x10^3/uL (0-0.1); BASOPHILS % (AUTO) 0 % (0-1); EOSINOPHILS # (AUTO) 0.31 x10^3/uL (0-0.4); EOSINOPHILS % (AUTO) 4 % (1-7); LYMPHOCYTES # (AUTO) 1.41 x10^3/uL (1-3.4); LYMPHOCYTES % (AUTO) 16 % (22-44); MD NO; MEAN CORPUSCULAR HEMOGLOBIN 31.9 pg (27.5-34.5); MEAN CORPUSCULAR HGB CONC 33.6 g/dL (33.2-36.2); MEAN CORPUSCULAR VOLUME 94.9 fL (81-97); MONOCYTES # (AUTO) 0.99 x10^3/uL (0.2-0.8); MONOCYTES % (AUTO) 11 % (2-9); NEUTROPHILS # (AUTO) 6.09 x10^3/uL (1.8-6.8); NEUTROPHILS % (AUTO) 69 % (42-75); PLATELET COUNT 280 x10^3/uL (130-400); RED BLOOD COUNT 3.31 x10^6/uL (4.38-5.82)
[2018-08-23 07:14] VITALS: BP 98/58
[2018-08-23] MEDS: FUROSEMIDE 20 MG/2 ML IV SCH (08:15)
[2018-08-23] MEDS: MUPIROCIN OINT 2%, 22GM NAS SCH (08:19)
[2018-08-23] MEDS: POTASSIUM CHLORIDE 10 MEQ TABLET.ER PO SCH (08:21)
[2018-08-23] MEDS: AMIODARONE 200 MG TABLET PO SCH (08:21)
[2018-08-23] MEDS: DOCUSATE 100 MG CAPSULE PO SCH ×2 (08:21→20:13)
[2018-08-23] MEDS: CLOPIDOGREL 75 MG TABLET PO SCH (08:21)
[2018-08-23] MEDS: SENNA/DOCUSATE TABLET PO SCH (08:21)
[2018-08-23] MEDS: ASPIRIN 81 MG TABLET EC PO SCH (08:21)
[2018-08-23] MEDS: SODIUM CHLORIDE FLUSH 10ML SYR IVF SCH ×2 (08:28→20:13)
[2018-08-23 09:32] VITALS: BP 131/76
[2018-08-23] MEDS: METOPROLOL TARTRATE 25 MG TABLET PO/NG SCH ×2 (10:31→20:20)
[2018-08-23] MEDS: POLYETHYLENE GLYCOL 17 GM PACKET PO SCH ×2 (10:32→20:13)
[2018-08-23 18:47] VITALS: BP 146/81
[2018-08-23] MEDS: ENOXAPARIN 40 MG/0.4 ML SQ SCH (20:13)
[2018-08-24 01:07] VITALS: BP 108/65
[2018-08-24] MEDS: OXYcodone IR 5MG TABLET PO PRN (02:49)
[2018-08-24 05:50] LABS: CHLORIDE 100 mmol/L (98-107)
[2018-08-24 05:55] LABS: ANION GAP 7 mmol/L (5-15); CALCIUM 8.6 mg/dL (8.5-10.1); CREATININE 0.97 mg/dL (0.7-1.3)
[2018-08-24 06:44] VITALS: BP 101/62
[2018-08-24] MEDS ORDERED: POTASSIUM CHLORIDE 10 MEQ TABLET.ER PO SCH (08:00)
[2018-08-24] MEDS: SENNA/DOCUSATE TABLET PO SCH (09:00)
[2018-08-24] MEDS ORDERED: FUROSEMIDE 20 MG TABLET PO SCH (09:00)
[2018-08-24] MEDS: POLYETHYLENE GLYCOL 17 GM PACKET PO SCH (09:00)
[2018-08-24] MEDS: ASPIRIN 81 MG TABLET EC PO SCH (09:03)
[2018-08-24] MEDS: CLOPIDOGREL 75 MG TABLET PO SCH (09:03)
[2018-08-24] MEDS: DOCUSATE 100 MG CAPSULE PO SCH (09:03)
[2018-08-24] MEDS: SODIUM CHLORIDE FLUSH 10ML SYR IVF SCH (09:04)
[2018-08-24] MEDS: METOPROLOL TARTRATE 25 MG TABLET PO/NG SCH (09:07)
[2018-08-24 09:49] LABS: BASOPHILS # (AUTO) 0.08 x10^3/uL (0-0.1); BASOPHILS % (AUTO) 1 % (0-1); EOSINOPHILS # (AUTO) 0.36 x10^3/uL (0-0.4); EOSINOPHILS % (AUTO) 4 % (1-7); LYMPHOCYTES # (AUTO) 1.27 x10^3/uL (1-3.4); LYMPHOCYTES % (AUTO) 16 % (22-44); MD NO; MEAN CORPUSCULAR HEMOGLOBIN 30.9 pg (27.5-34.5); MEAN CORPUSCULAR HGB CONC 33.3 g/dL (33.2-36.2); MEAN CORPUSCULAR VOLUME 92.9 fL (81-97); MEAN PLATELET VOLUME 7.8 fL (7.4-10.4); MONOCYTES # (AUTO) 0.81 x10^3/uL (0.2-0.8); MONOCYTES % (AUTO) 10 % (2-9); NEUTROPHILS % (AUTO) 69 % (42-75); PLATELET COUNT 352 x10^3/uL (130-400); RED BLOOD COUNT 3.46 x10^6/uL (4.38-5.82); RED CELL DISTRIBUTION WIDTH 13.3 % (9.4-14.8)
[2018-08-24] MEDS ORDERED: ASPI81TA45 PO (11:22)
[2018-08-24] MEDS ORDERED: CLOP75TA PO (11:22)
[2018-08-24] MEDS ORDERED: ACET325T26 PO (11:22)
[2018-08-24] MEDS ORDERED: POTA10TA5 PO (11:22)
[2018-08-24] MEDS ORDERED: POLY17PO5 PO (11:22)
[2018-08-24] MEDS ORDERED: METO25TA35 PO/NG (11:22)
[2018-08-24] MEDS ORDERED: FURO20TA3 PO (11:22)
[2018-08-24] MEDS ORDERED: OXYC5TAB3 PO (11:22)
[2018-08-24] MEDS ORDERED: ATOR80TA PO (11:22)
== END 2018-08-24 13:35 | disposition home health service (06) | DRG 233 ==
LOC: ED 11:18 → EDIP 12:29 → UNDOADMIN 12:44 → EDIP 12:44 → 5SO 13:11 → CSU 08-18 14:31 → 5SO 08-20 12:05 → DCLOUNGE 08-24 13:16
PROVIDERS: ADMIT Internal Medicine; ATTEND Internal Medicine
PROC: 4A023N7 Measurement of Cardiac Sampling and Pressure, Left Heart, Percutaneous Approach (ICD-10-PCS; 2018-08-17)
PROC: B2111ZZ Fluoroscopy of Multiple Coronary Arteries using Low Osmolar Contrast (ICD-10-PCS; 2018-08-17)
PROC: B2151ZZ Fluoroscopy of Left Heart using Low Osmolar Contrast (ICD-10-PCS; 2018-08-17)
PROC: 06BQ4ZZ Excision of Left Saphenous Vein, Percutaneous Endoscopic Approach (ICD-10-PCS; 2018-08-18)
PROC: 02100Z9 Bypass Coronary Artery, One Artery from Left Internal Mammary, Open Approach (ICD-10-PCS; 2018-08-18)
PROC: 03HY32Z Insertion of Monitoring Device into Upper Artery, Percutaneous Approach (ICD-10-PCS; 2018-08-18)
PROC: 021109W Bypass Coronary Artery, Two Arteries from Aorta with Autologous Venous Tissue, Open Approach (ICD-10-PCS; principal; 2018-08-18 12:30)
DX: I21.4 Non-ST elevation (NSTEMI) myocardial infarction (principal); I49.01 Ventricular fibrillation; I50.33 Acute on chronic diastolic (congestive) heart failure; J98.11 Atelectasis; I25.119 Atherosclerotic heart disease of native coronary artery with unspecified angina pectoris; Z88.8 Allergy status to other drugs, medicaments and biological substances; D72.829 Elevated white blood cell count, unspecified; E78.5 Hyperlipidemia, unspecified; F17.200 Nicotine dependence, unspecified, uncomplicated; G89.18 Other acute postprocedural pain; I11.0 Hypertensive heart disease with heart failure; Z82.3 Family history of stroke; Z82.49 Family history of ischemic heart disease and other diseases of the circulatory system; Z83.3 Family history of diabetes mellitus; Z95.5 Presence of coronary angioplasty implant and graft; M16.10 Unilateral primary osteoarthritis, unspecified hip
CPT/HCPCS: 0399T; 36415; 36600; 71045; 71046; 80048; 80053; 80061; 81001; 81003; 82040; 82330; 82800; 82803; 82810; 82947; 82962; 83036; 83735; 84100; 84132; 84295; 84439; 84443; 84484; 85014; 85018; 85025; 85049; 85347; 85520; 85610; 85730; 86850; 86900; 86923; 87081; 93005; 93306; 93312; 93321; 93325; 93458; 93880; 93970; 94002; 94003; 99156; C1769; C1894; G0378; J0610; J0697; J1644; J1650; J1815; J2250; J2704; J2720; J3010; J3370; J3475; J3480; P9045; P9047; C1751; C1760; C9113; J0171; J0282; J1940; J2270; J2370; J2440; J2930; J7030; J7040; J7050; J7060; Q9967

== ENCOUNTER 2018-09-26 09:54 | Outpatient (CLI) | payer MEDICARE, OTHER | END 2018-09-26 23:59 | disposition home or self-care (01) | LOC: CFH 09:54 | PROVIDERS: ATTEND Internal Medicine Cardiovascular Disease | DX: I10 Essential (primary) hypertension (principal); E78.5 Hyperlipidemia, unspecified; Z95.1 Presence of aortocoronary bypass graft | CPT/HCPCS: 93306 ==

== ENCOUNTER → 2019-11-22 | Outpatient (CLI) | payer MEDICARE, OTHER ==
[~2019-11-22] MED LIST changes: +ACET325T26 PO; +ATOR80TA PO; +CLOP75TA PO; +FURO20TA3 PO; +METO25TA35 PO/NG; +OXYC5TAB3 PO; +POLY17PO5 PO; +POTA10TA5 PO
== END | disposition home or self-care (01) ==
LOC: CFH 06:55
PROVIDERS: ATTEND Internal Medicine Cardiovascular Disease
DX: I07.1 Rheumatic tricuspid insufficiency (principal); I25.10 Atherosclerotic heart disease of native coronary artery without angina pectoris; E78.5 Hyperlipidemia, unspecified; I25.2 Old myocardial infarction; Z95.1 Presence of aortocoronary bypass graft
CPT/HCPCS: 93306